=== PATIENT | female | born 1960 | race African-American/Black ===

== ENCOUNTER 2023-10-13 14:26 | Emergency (ER) | payer MEDICAID, OTHER ==
[~2023-10-13] VITALS: Ht 149.9 cm; Wt 52.2 kg
[2023-10-13 15:16] VITALS: BP 118/98; PULSE 64; RESP 18; O2SAT 98
== END 2023-10-13 19:48 | disposition home or self-care (01) ==
LOC: ER 14:26
DX: S01.111A Laceration without foreign body of right eyelid and periocular area, initial encounter (principal); R56.9 Unspecified convulsions; W22.8XXA Striking against or struck by other objects, initial encounter; Y93.89 Activity, other specified; Y92.091 Bathroom in other non-institutional residence as the place of occurrence of the external cause; Y99.8 Other external cause status
CPT/HCPCS: 12013; 70450